=== PATIENT | female | born 1955 ===

== ENCOUNTER 2020-12-20 06:15 | Observation (INO) ==
[~2020-12-20 06:15] MED LIST: Buffered Lidocaine 1% SYRIN 1 ml INTRADERM ONE; Lactated Ringers 1000 ml BAG 1,000 ML IV SCH
[2020-12-20] MEDS ORDERED: ceFAZolin 2 GM PREMIX 2 GM/50 ML BAG ONE (06:36)
[2020-12-20] MEDS ORDERED: Lidocaine 1% MPF 5 ML VIAL ONE (06:57)
[2020-12-20] MEDS ORDERED: ROPIVACAINE 5 MG/ML 30 ML BTL (0.5%) ONE (06:57)
[2020-12-20] MEDS ORDERED: Ropivacaine 5 MG/ML 20 ML VIAL 0.5% (100 MG) ONE (07:19)
[2020-12-20] MEDS ORDERED: fentaNYL 100 mcg/2 ml 50 MCG/ML VIAL ONE (07:26)
[2020-12-20] MEDS ORDERED: Ketamine HCL 50 mg/ml 10 ml VIAL (500 MG) ONE (07:26)
[2020-12-20] MEDS ORDERED: Dexamethasone IV 4 MG/ML VIAL 1 ml VIAL ONE (07:26)
[2020-12-20] MEDS ORDERED: Midazolam 5 mg/5 ml VIAL 1 mg/ml 5 ml VIAL (5 mg) ONE (07:26)
[2020-12-20] MEDS ORDERED: Propofol 10 MG/ML 20 ML BTL ONE (07:26)
[2020-12-20] MEDS ORDERED: Lidocaine 2% PF 5 ML VIAL ONE (07:27)
[2020-12-20] MEDS ORDERED: Bupivacaine 0.5% SDV PF 30ML VIAL ONE (07:27)
[2020-12-20] MEDS ORDERED: Phenylephrine 40 mcg/mL 10mL (400mcg) SYRINGE ONE (09:38)
[2020-12-20] MEDS ORDERED: Phenylephrine IV 10 MG/ML 1 ml VIAL ONE (09:53)
[2020-12-20] MEDS ORDERED: HYDROmorphone 1 MG/1 ML SYRINGE IV PRN (10:04)
[2020-12-20] MEDS ORDERED: Naloxone 0.4 mg VIAL 0.4 mg/ml 1 ml VIAL IV PRN (10:04)
[2020-12-20] MEDS ORDERED: fentaNYL 100 mcg/2 ml 50 MCG/ML VIAL IV PRN (10:04)
[2020-12-20] MEDS ORDERED: Ondansetron 4 mg VIAL 2 MG/ML 2 ml VIAL IV PRN ×2 (10:04→12:02)
[2020-12-20] MEDS ORDERED: Ondansetron ODT 4 mg TAB 4 MG TAB PO PRN (12:02)
[2020-12-20] MEDS ORDERED: Lactulose 30 ml UDC PO PRN (12:02)
[2020-12-20] MEDS ORDERED: diPHENhydraMINE IV 50 MG/ML 1 ml VIAL (BENADRYL) IV PRN (12:02)
[2020-12-20] MEDS ORDERED: Magnesium Hydroxide LIQ 30 ML UDC PO PRN (12:02)
[2020-12-20] MEDS ORDERED: Morphine 2 MG/ML SYRINGE IV PRN (12:02)
[2020-12-20] MEDS ORDERED: diPHENhydraMINE 25 mg TAB PO PRN (12:02)
[2020-12-20] MEDS: Lactated Ringers 1000 ml BAG 1,000 ML IV SCH (14:10)
[2020-12-20] MEDS: oxyCODONE/Acetamin 5/325 mg TAB PO PRN (16:08)
[2020-12-20] MEDS: ceFAZolin 1 GM ADVAN 1 GM in NS 0.9% 50 ML 50 ML IVPB SCH (17:08)
[2020-12-20] MEDS: Magnesium Hydroxide LIQ 30 ML UDC PO SCH (22:27)
[2020-12-21] MEDS: Lactated Ringers 1000 ml BAG 1,000 ML IV SCH (00:38)
[2020-12-21] MEDS: ceFAZolin 1 GM ADVAN 1 GM in NS 0.9% 50 ML 50 ML IVPB SCH ×2 (02:16→10:01)
[2020-12-21] MEDS: oxyCODONE/Acetamin 5/325 mg TAB PO PRN ×2 (02:37→11:41)
[2020-12-21 05:39] LABS: Hematocrit 32 % (35-47); Hemoglobin 10.6 g/dL (12.0-16.0); Mean Platelet Volume 8.8 fL (7.4-10.4); Platelet Count 181 10^3/uL (150-450)
[2020-12-21 05:53] LABS: Calcium 8.4 mg/dL (8.6-10.3); EGFR African American 71.4 (>60); Potassium 4.2 mmol/L (3.5-5.0)
[2020-12-21] MEDS: Magnesium Hydroxide LIQ 30 ML UDC PO SCH (08:09)
[2020-12-21] MEDS ORDERED: Vitamin THERAPEUTIC TAB PO SCH (09:00)
[2020-12-21 11:39] VITALS: BP 118/54
== END 2020-12-21 13:52 | disposition home or self-care (01) ==
LOC: OR 06:15 → SSU 06:15
PROVIDERS: ADMIT Orthopaedic Surgery Adult Reconstructive Orthopaedic Surgery; ATTEND Orthopaedic Surgery Adult Reconstructive Orthopaedic Surgery